=== PATIENT | male | born 1970 ===

== ENCOUNTER → 2017-08-09 | Emergency (ER) | payer OTHER ==
[~2017-08-09] VITALS: Ht 172.7 cm; Wt 87.5 kg
[~2017-08-09] MED LIST: AMBIEN5 MG; ATIVAN1 M1; ZOLOFT20 MG/1 ML
== END | disposition left against medical advice (07) ==
LOC: ER 07:50
DX: R10.812 Left upper quadrant abdominal tenderness (principal)